=== PATIENT | female | born 1990 ===

== ENCOUNTER 2020-10-03 09:46 | Inpatient (IN) | payer MEDICAID ==
[2020-10-03] MEDS ORDERED: OXYTOCIN 10 UNIT/1 ML INJ ONE (09:48)
--- NOTE | 2020-10-03 10:16 | History and Physical Report ---
History of Present Illness Date of examination: 10/03/20 Date of admission: 10/03/20 09:46 History of present illness: Care at [facility] [employer], Uncomplicated Course Past History Past Medical History: no pertinent history Past Surgical History: no surgical history Family/Genetic History: none Social history: no significant social history, - Obstetrical History Expected Date of Delivery: 10/17/20 Actual Gestation: 38 Week(s) 0 Day(s) : 2 Para: 1 Hx # Term Pregnancies: 1 Number of Living Children: 1 Medications and Allergies Active Meds: Active Medications Hydrocodone Bitart/Acetaminophen (Hydrocodone/Acetaminophen 5-325 Mg Tab) 2 each PO Q6H PRN PRN Reason: Pain, Moderate (4-6) Bisacodyl (Bisacodyl 10 Mg Rect Supp) 10 mg SC BID PRN PRN Reason: Constipation Diphenhydramine HCl (Diphenhydramine 25 Mg Cap) 25 mg PO Q6H PRN PRN Reason: Itching Oxytocin/Sodium Chloride (Pitocin/Ns 30 Unit/500ml) 30 units in 500 mls @ 40 mls/hr IV TITR LINUS; Protocol Ibuprofen (Ibuprofen 600 Mg Tab) 600 mg PO Q6H LINUS Promethazine HCl (Promethazine 25 Mg Rect Supp) 25 mg SC Q6H PRN PRN Reason: Nausea And Vomiting Review of Systems All systems: negative - Physical Exam Breasts: Positive: normal Cardiovascular: Regular rate Lungs: Positive: Clear to auscultation, Normal air movement Abdomen: Positive: normal appearance, soft, normal bowel sounds Genitourinary (Female): Positive: normal external genitalia, normal perenium Vagina: Positive: normal moisture Anus/Rectum: Positive: normal perianal skin Extremities: Positive: normal Results All other labs normal. Assessment and Plan A: Delivered (in office) @Term (38 Weeks) GBS Negative P: Admit to L&D Per Routine Orders Deliver Placenta
--- NOTE | 2020-10-03 10:28 | Procedure Note ---
OB Delivery Note - Delivery Date of Delivery: 10/03/20 (0918) Surgeon: SHEFALI OCHOA Estimated blood loss: other (250) - Vaginal Delivery presentation: vertex Intrapartum events: precipitous labor- <3hr, other(please specify) (Office Delivery) Delivery induction: none Delivery monitor: none Route of delivery: Delivery placenta: spontaneous Episiotomy: none Delivery laceration: none Anesthesia: none Delivery comments: Precipitous vaginal delivery of a 6'9 male infant over a intact perineum with Apgars of 8 and 9 without pain control in the office of [employer]; delivery attended by Dr. Jewell. Patient transferred by EMS to [facility] with Infant and placenta still in uterus. Spontaneous delivery of placenta complete and intact with [place] side presenting at 0945. 20U of Pitocin given IM. Fundus is firm and midline located 4 below the U. Lochia is scant. Placenta discarded. - A at 1 minute: 8 at 5 minutes: 9 Infant Gender: Male (6'9)
[2020-10-03] MEDS ORDERED: diphenhydrAMINE 25 MG CAP PO PRN (11:00)
[2020-10-03] MEDS ORDERED: PROMETHAZINE 25 MG RECT SUPP PR PRN (11:00)
[2020-10-03] MEDS ORDERED: OXYTOCIN DRIP 30 UNITS/500 ML BAG IV SCH (11:00)
[2020-10-03] MEDS ORDERED: HYDROcodone/ACETAMINOPHEN 5-325 MG TAB PO PRN (11:00)
[2020-10-03] MEDS ORDERED: OXYTOCIN 10 UNIT/1 ML INJ IM SCH (11:00)
[2020-10-03 11:07] LABS: Hematocrit 34.3 % (30.3-42.9); Hemoglobin 11.7 gm/dl (10.1-14.3); Mean Corpuscular HGB Conc 34 % (30-34); Mean Corpuscular Volume 89 fl (79-97); Platelet Count 269 K/mm3 (140-440); Red Blood Count 3.86 M/mm3 (3.65-5.03); Red Cell Distribution Width 14.9 % (13.2-15.2)
[2020-10-03] MEDS: IBUPROFEN 600 MG TAB PO SCH ×3 (12:59→23:00)
[2020-10-04 01:24] LABS: Hematocrit 29.9 % (30.3-42.9); Hemoglobin 10.1 gm/dl (10.1-14.3)
[2020-10-04] MEDS: IBUPROFEN 600 MG TAB PO SCH (05:24)
--- NOTE | 2020-10-04 14:42 | Discharge Summary ---
Providers - Providers Date of Admission: 10/03/20 09:46 Date of discharge: 10/04/20 Attending physician: MARILYNN JO MD Primary care physician: MARILYNN JO MD Hospitalization Reason for admission: other ( at [employer] office) Delivery: Episiotomy: none Laceration: none Other procedures: none complications: none Discharge diagnosis: IUP at term delivered, other (anemia) [place] baby: male Hospital course: See admission H & P; OB delivery summary and PP progress notes Condition at discharge: Good Disposition: DC-01 TO HOME OR SELFCARE - Discharge Diagnoses (1) Status post normal vaginal delivery Status: Acute (2) Anemia Status: Acute Qualifiers: Anemia type: other cause Other causes of anemia: acute posthemorrhagic Qualified Code(s): D62 - Acute posthemorrhagic anemia Comment: Asymptomatic Plan - Provider Discharge Summary Activity: routine, no sex for 6 weeks, no heavy lifting 4 weeks, no strenuous exercise Diet: other (Iron rich diet) Instructions: routine Additional instructions: [] Smoking cessation referral if applicable(refer to patient education folder for contact #) [] Refer to [facility]'s [facility] Booklet Call your doctor immediately for: * Fever > 100.5 * Heavy vaginal bleeding ( >1 pad per hour) * Severe persistent headache * Shortness of breath * Reddened, hot, painful area to leg or breast * Drainage or odor from incision. * Keep incision clean and dry at all times and follow doctor's instructions regarding bathing/showering - Follow up plan Follow up: MRAILYNN JO MD [Primary Care Provider] - 6 Weeks
[2020-10-04 18:00] VITALS: BP 116/72
== END 2020-10-04 18:03 | disposition home or self-care (01) | DRG 775 ==
LOC: LD 09:46 → OB 12:17
PROVIDERS: ADMIT Obstetrics & Gynecology; ATTEND Obstetrics & Gynecology
PROC: 10E0XZZ Delivery of Products of Conception, External Approach (ICD-10-PCS; principal; 2020-10-03)
DX: O62.3 Precipitate labor (principal); O90.81 Anemia of the puerperium; D62 Acute posthemorrhagic anemia; Z37.0 Single live birth; Z3A.38 38 weeks gestation of pregnancy
CPT/HCPCS: 36415; 85014; 85018; 85027; 86850; 86900; 86901; 96372; G0378; J2590